=== PATIENT | female | born 1950 ===

== ENCOUNTER 2016-11-19 09:36 | Inpatient (IN) | payer OTHER, MEDICARE ==
[2016-11-19] MEDS ORDERED: Iohexol 240 (50 ml) PO STA (11:08)
[2016-11-19] MEDS ORDERED: Iohexol 240 (50 ml) ONE (11:13)
--- NOTE | 2016-11-19 11:22 | C.PDOC ---
History Of Present Illness 66 yr old female presents to the ER with complaints of constant LLQ pain, radiating to the back for the past 2 days. Patient denies fever, chills, nausea , vomiting, diarrhea, dysuria, weakness or numbness. Also denies prior episode of pain. Time Seen by Provider: 11/19/16 10:22 Chief Complaint (Nursing): Abdominal Pain History Per: Patient History/Exam Limitations: no limitations Onset/Duration Of Symptoms: Days (2) Current Symptoms Are (Timing): Still Present Location Of Pain/Discomfort: LLQ Past Medical History Vital Signs: Last Vital Signs Temp 98.0 F 11/19/16 14:24 Pulse 82 11/19/16 14:24 Resp 18 11/19/16 14:24 BP 121/76 11/19/16 14:24 Pulse Ox 99 11/19/16 15:25 - Medical History PMH: Hypercholesterolemia Surgical History: Cholecystectomy Family History: States: No Known Family Hx - Social History Hx Alcohol Use: No Hx Substance Use: No Review Of Systems Constitutional: Negative for: Fever, Chills Gastrointestinal: Positive for: Abdominal Pain (LLQ). Negative for: Nausea, Vomiting, Diarrhea Genitourinary: Negative for: Dysuria Neurological: Negative for: Weakness, Numbness Physical Exam - Physical Exam Appears: Non-toxic, No Acute Distress Skin: Warm, Dry, No Rash Head: Atraumatic, Normacephalic Oral Mucosa: Moist Chest: Symmetrical, No Tenderness Cardiovascular: Rhythm Regular, No Murmur Respiratory: Normal Breath Sounds, No Rales, No Rhonchi, No Stridor, No Wheezing Gastrointestinal/Abdominal: Soft, Tenderness (LLQ), No Guarding, No Rebound Back: Normal Inspection, No CVA Tenderness Extremity: Normal ROM, No Swelling Neurological/Psych: Oriented x3, Normal Speech, Normal Motor ED Course And Treatment - Laboratory Results Result Diagrams: 11/19/16 11:29 11/19/16 11:29 O2 Sat by Pulse Oximetry: 99 (RA ) Pulse Ox Interpretation: Normal - CT Scan/US CT - Abd & Pelvis Other Rad Studies (CT/US): Read By Radiologist, Radiology Report Reviewed CT/US Interpretation: PROCEDURE: CT Abdomen and Pelvis with and without intravenous contrast. HISTORY: llq pain. COMPARISON: Abdominal ultrasound performed 03/01/12. TECHNIQUE: Axial images of the abdomen were obtained in the pre contrast, portal venous and delayed phases of enhancement. Coronal and sagittal reformats were generated and reviewed. Contrast dose: 100 mL Visipaque. Radiation dose: Total exam DLP = 1125.66 mGy-cm. This CT exam was performed using one or more of the following dose reduction techniques: Automated exposure control, adjustment of the mA and/or kV according to patient size, and/or use of iterative reconstruction technique. FINDINGS: LOWER THORAX : No visible consolidation, pleural effusion, or pneumothorax. 3 mm right middle lobe pulmonary nodule (series 6, image 3). LIVER: Several low-density right hepatic lobe lesions. For example: Largest lesion measures approximately 3.5 x 2.4 cm, 9 HU consistent with a cyst ; additional smaller lesions too small to definitively characterize however statistically likely cysts or hemangiomas. Hypoattenuation of the liver compatible with hepatic steatosis. GALLBLADDER AND BILE DUCTS: Cholecystectomy. PANCREAS: Unremarkable. SPLEEN : Unremarkable. ADRENALS: Unremarkable. KIDNEYS AND URETERS: The kidneys enhance symmetrically. Right renal cortical scarring. No hydronephrosis or obstructing calculus identified. VASCULATURE: No aortic aneurysm. BOWEL: The stomach is nondistended. Lack of oral contrast limits evaluation for bowel pathology. Bowel loops appear within normal limits of caliber without evidence of obstruction. Extensive inflammatory changes and wall thickening involving the rectosigmoid colon consistent with acute diverticulitis. APPENDIX: The appendix appears within normal limits of caliber. No secondary signs of acute appendicitis. PERITONEUM: Small pelvic free fluid. No free air. LYMPH NODES: No bulky adenopathy identified. BLADDER: Urinary bladder wall thickening, asymmetric ; recommend correlation with urinalysis. REPRODUCTIVE: The uterus is present. BONES: No acute osseous abnormality is detected. OTHER FINDINGS: None. IMPRESSION: Extensive inflammatory changes and wall thickening involving the rectosigmoid colon consistent with acute diverticulitis. Urinary bladder wall thickening, asymmetric ; recommend correlation with urinalysis. Appearance suspected secondary to cystitis. Several low-density right hepatic lobe lesions. For example: Largest lesion measures approximately 3.5 x 2.4 cm, 9 HU consistent with a cyst ; additional smaller lesions too small to definitively characterize however statistically likely cysts or hemangiomas. Hepatic steatosis. 3 mm right middle lobe pulmonary nodule. In the absence of risk factors for lung cancer, no specific imaging follow-up is required. If the patient is a smoker or has other risk factors, follow-up CT at 12 months is recommended to document stability. Additional findings as above. Medical Decision Making Medical Decision Making: PLAN: * CT - Abd & Pelvis * CBC * CMP * Urinalysis * Toradol IVP [address] Jenkins and medical observer about admission. pt notified of ct findings and pulm nodule (no f/u needed per ct report- pt never has been a smoker) Disposition Discussed With Dr.: Jacobo Jenkins Jr. 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 - Scribe Statement The provider has reviewed the documentation as recorded by the Scribe Nati Solorzano All medical record entries made by the Scribe were at my direction and personally dictated by me. I have reviewed the chart and agree that the record accurately reflects my personal performance of the history, physical exam, medical decision making, and the department course for this patient. I have also personally directed, reviewed, and agree with the discharge instructions and disposition. Decision To Admit - Pt Status Changed To: Hospital Disposition Of: Observation - . Bed Request Type: Regular Admitting Physician: Jacobo Jenkins Jr. Patient Diagnosis: Diverticulitis
[2016-11-19 11:49] LABS: BASO # 0.1 K/uL (0.0-0.2); BASO % 0.5 % (0.0-2.0); EOS # 0.1 K/uL (0.0-0.7); EOS % 0.8 % (0.0-4.0); GRANULAR CAST 10 /lpf (0-1); HEMATOCRIT 42.2 % (34.0-47.0); LYMPH # 1.9 K/uL (1.0-4.3); MEAN CELL VOLUME 93.2 fL (81.0-99.0); MEAN CORPUSCULAR HEMOGLOBIN 31.5 pg (27.0-31.0); MEAN CORPUSCULAR HGB CONC 33.7 g/dL (33.0-37.0); MEAN PLATELET VOLUME 8.8 fL (7.2-11.7); MONO # 1.1 K/uL (0.0-0.8); MONO % 6.2 % (0.0-10.0); POTASSIUM 3.9 mmol/L (3.6-5.2); RBC URINE 14 /hpf (0-3); RED CELL DISTRIBUTION WIDTH 13.5 % (11.5-14.5); URINE BACTERIA RARE (<OCC); URINE BILIRUBIN NEGATIVE (NEGATIVE); URINE BLOOD 2+ (NEGATIVE); URINE COLOR Amber (YELLOW); URINE GLUCOSE (UA) NORMAL (Normal); URINE HYALINE CAST 0-2 /lpf (0-2); URINE KETONE NEGATIVE (NEGATIVE); URINE LEUKOCYTE ESTERASE TRACE Leu/uL (Negative); URINE PROTEIN 2+ mg/dL (NEGATIVE); URINE UROBILINOGEN NORMAL mg/dL (0.2-1.0); WBC URINE 5 /hpf (0-5)
[2016-11-19 11:51] LABS: ALB/GLOB RATIO 0.8 (1.0-2.1); BILIRUBIN,TOTAL 0.7 mg/dL (0.2-1.3); TOTAL PROTEIN 7.1 g/dL (6.3-8.3)
[2016-11-19 11:52] LABS: CALCIUM 8.9 mg/dl (8.6-10.4)
[2016-11-19] MEDS ORDERED: Iodixanol 320 MG/ML 100 ML BOTTLE IV ONE (13:22)
[2016-11-19] MEDS ORDERED: cefTRIAXone IV 1 gm in Dextros 50 ML IVPB ONE (13:36)
--- NOTE | 2016-11-19 14:38 | CT ---
PROCEDURE: CT Abdomen and Pelvis with and without intravenous contrast HISTORY: llq pain COMPARISON: Abdominal ultrasound performed 03/01/12 TECHNIQUE: Axial images of the abdomen were obtained in the pre contrast, portal venous and delayed phases of enhancement. Coronal and sagittal reformats were generated and reviewed. Contrast dose: 100 mL Visipaque Radiation dose: Total exam DLP = 1125.66 mGy-cm. This CT exam was performed using one or more of the following dose reduction techniques: Automated exposure control, adjustment of the mA and/or kV according to patient size, and/or use of iterative reconstruction technique. FINDINGS: LOWER THORAX: No visible consolidation, pleural effusion, or pneumothorax. 3 mm right middle lobe pulmonary nodule (series 6, image 3). LIVER: Several low-density right hepatic lobe lesions. For example: Largest lesion measures approximately 3.5 x 2.4 cm, 9 HU consistent with a cyst ; additional smaller lesions too small to definitively characterize however statistically likely cysts or hemangiomas. Hypoattenuation of the liver compatible with hepatic steatosis. GALLBLADDER AND BILE DUCTS: Cholecystectomy. PANCREAS: Unremarkable. SPLEEN: Unremarkable. ADRENALS: Unremarkable. KIDNEYS AND URETERS: The kidneys enhance symmetrically. Right renal cortical scarring. No hydronephrosis or obstructing calculus identified. VASCULATURE: No aortic aneurysm. BOWEL: The stomach is nondistended. Lack of oral contrast limits evaluation for bowel pathology. Bowel loops appear within normal limits of caliber without evidence of obstruction. Extensive inflammatory changes and wall thickening involving the rectosigmoid colon consistent with acute diverticulitis. APPENDIX: The appendix appears within normal limits of caliber. No secondary signs of acute appendicitis. PERITONEUM: Small pelvic free fluid. No free air. LYMPH NODES: No bulky adenopathy identified. BLADDER: Urinary bladder wall thickening, asymmetric ; recommend correlation with urinalysis. REPRODUCTIVE: The uterus is present. BONES: No acute osseous abnormality is detected. OTHER FINDINGS: None. IMPRESSION: Extensive inflammatory changes and wall thickening involving the rectosigmoid colon consistent with acute diverticulitis. Urinary bladder wall thickening, asymmetric ; recommend correlation with urinalysis. Appearance suspected secondary to cystitis. Several low-density right hepatic lobe lesions. For example: Largest lesion measures approximately 3.5 x 2.4 cm, 9 HU consistent with a cyst ; additional smaller lesions too small to definitively characterize however statistically likely cysts or hemangiomas. Hepatic steatosis. 3 mm right middle lobe pulmonary nodule. In the absence of risk factors for lung cancer, no specific imaging follow-up is required. If the patient is a smoker or has other risk factors, follow-up CT at 12 months is recommended to document stability. Additional findings as above.
[2016-11-19] MEDS ORDERED: Sodium Chloride 0.9% 1,000 ML IV ONE (15:08)
[2016-11-19] MEDS ORDERED: Sodium Chloride 0.9% 1,000 ML ONE (15:20)
--- NOTE | 2016-11-19 18:44 | CP.PCM.HP ---
History of Present Illness - History of Present Illness History of Present Illness: PGY-[address] Jenkins HPI: 66 yo F with a PMHx significant for HLD who presents with complaints of abdominal pain that began yesterday morning. Patient states that shortly after waking up in the morning, while still lying in bed, she began to feel a "strong , bothersome" pain to the left-side. The pain originates in the LLQ and radiates to the left flank/back. She reports taking Tylenol and Motrin at home with some temporary relief. No noted aggravating factors. Denies any similar prior episodes in the past. Patient states that a few days before the onset of the pain, she began having a subjective fever and chills in which she also took Tylenol for. She is otherwise in NAD. Denies signs of chest pain, palpitations, n/v/d, constipation, changes in BM or urinary habits or changes in appetite. Of note, she has had recent sick contacts, as her 3 granddaughters all have had recent "colds". Denies any recent travels or eating any unusual foods. No other complaints at this time PMH: HLD PSH: Nikita Manriquez FH: None SH: -smoking, -EtOH, - Illicit drugs Meds: Atorvastatin 20mg PO QD Allergies: NKA Present on Admission - Present on Admission Any Indicators Present on Admission: No History of DVT/PE: No History of Uncontrolled Diabetes: No Urinary Catheter: No Decubitus Ulcer Present: No Review of Systems - Constitutional Constitutional: As Per HPI - EENT Eyes: As Per HPI Ears: As Per HPI Nose/Mouth/Throat: As Per HPI - Breasts Breasts: As Per HPI - Cardiovascular Cardiovascular: As Per HPI - Respiratory Respiratory: As Per HPI - Gastrointestinal Gastrointestinal: As Per HPI - Genitourinary Genitourinary: As Per HPI - Reproductive: Female Reproductive:Female: As Per HPI - Menstruation Menstruation: As Per HPI - Musculoskeletal Musculoskeletal: As Per HPI - Integumentary Integumentary: As Per HPI - Neurological Neurological: As Per HPI - Psychiatric Psychiatric: As Per HPI - Endocrine Endocrine: As Per HPI - Hematologic/Lymphatic Hematologic: As Per HPI Past Patient History - Tetanus Immunizations Tetanus Immunization: Unknown - Past Medical History & Family History Past Medical History?: No - Past Social History Smoking Status: Never Smoked Chewing Tobacco Use: No Cigar Use: No Alcohol: None Drugs: Denies Home Situation {Lives}: With Family - CARDIAC Hx Hypercholesterolemia: Yes - PSYCHIATRIC Hx Substance Use: No - SURGICAL HISTORY Hx Cholecystectomy: Yes Meds Allergies/Adverse Reactions: Allergies Allergy/AdvReac Type Severity Reaction Status Date / Time No Known Allergies Allergy Verified 11/19/16 09:44 Physical Exam - Constitutional Appears: Well, Non-toxic - Head Exam Head Exam: ATRAUMATIC, NORMAL INSPECTION, NORMOCEPHALIC - Eye Exam Eye Exam: EOMI - ENT Exam ENT Exam: Mucous Membranes Moist - Neck Exam Neck exam: Positive for: Full Rom - Respiratory Exam Respiratory Exam: Clear to Auscultation Bilateral, NORMAL BREATHING PATTERN. absent: Rhonchi, Wheezes, Stridor - Cardiovascular Exam Cardiovascular Exam: REGULAR RHYTHM, RRR. absent: Bradycardia, Tachycardia, Clicks, JVD, Systolic Murmur - GI/Abdominal Exam GI & Abdominal Exam: Normal Bowel Sounds, Soft, Tenderness (moderate trenderness to deep palpation in the LLQ). absent: Distended, Firm, Guarding - Neurological Exam Neurological exam: Alert, Oriented x3 - Psychiatric Exam Psychiatric exam: Normal Affect, Normal Mood - Skin Skin Exam: Dry, Intact, Warm Results - Vital Signs Recent Vital Signs: Last Vital Signs Temp 98.6 F 11/19/16 18:35 Pulse 83 11/19/16 18:35 Resp 20 11/19/16 18:35 BP 119/70 11/19/16 18:35 Pulse Ox 97 11/19/16 18:35 - Labs Result Diagrams: 11/19/16 11:29 11/19/16 11:29 Assessment & Plan - Assessment and Plan (Free Text) Assessment: Diverticulitis: Cipro 500mg PO Q12 Flagyl 500mg PO Q8 Solumedrol 40mg IV Q12 x3d NPO HLD: Crestor 20mg PO QD PPX: Ambulate/OOB SCD Pepcid 20mg PO QD NS@100 - Date & Time Date: 11/19/16 Time: 18:53 Decision To Admit - . Bed Request Type: Regular Admitting Physician: Jacobo Jenkins Jr.
[2016-11-19] MEDS: Sodium Chloride 0.9% 1,000 ML IV SCH (19:05)
[2016-11-19] MEDS: MethylPREDNISolone 40 mg Vial IV SCH (22:27)
[2016-11-20] MEDS: Sodium Chloride 0.9% 1,000 ML IV SCH ×2 (04:59→14:36)
[2016-11-20 07:36] LABS: BASO % 0.3 % (0.0-2.0); HEMATOCRIT 36.6 % (34.0-47.0); LYMPH # 0.8 K/uL (1.0-4.3); LYMPH % 4.9 % (20.0-40.0); MEAN CELL VOLUME 92.5 fL (81.0-99.0); MEAN CORPUSCULAR HEMOGLOBIN 31.3 pg (27.0-31.0); MEAN CORPUSCULAR HGB CONC 33.8 g/dL (33.0-37.0); MEAN PLATELET VOLUME 7.7 fL (7.2-11.7); MONO # 0.4 K/uL (0.0-0.8); MONO % 2.3 % (0.0-10.0); PLATELET COUNT 271 K/uL (130-400); RED CELL DISTRIBUTION WIDTH 13.8 % (11.5-14.5); WHITE BLOOD COUNT 15.4 K/uL (4.8-10.8)
[2016-11-20 07:53] LABS: INR 1.2
[2016-11-20 08:28] LABS: CHLORIDE 113 mmol/L (98-107); POTASSIUM 3.7 mmol/L (3.6-5.2); SODIUM 146 mmol/L (132-148)
[2016-11-20 08:30] LABS: ALB/GLOB RATIO 0.8 (1.0-2.1); ALKALINE PHOSPHATASE 303 U/L (38-126); AST/SGOT 36 U/L (14-36); BILIRUBIN,TOTAL 0.6 mg/dL (0.2-1.3); BLOOD UREA NITROGEN 13 mg/dL (7-17); CARBON DIOXIDE 18 mmol/L (22-30); GFR AFRICAN-AMERICAN > 60; TOTAL PROTEIN 6.1 g/dL (6.3-8.3)
[2016-11-20 08:31] LABS: ALT/SGPT 57 U/L (9-52); CALCIUM 8.2 mg/dl (8.6-10.4); GLUCOSE,RANDOM 151 mg/dL (65-105); MAGNESIUM 2.1 mg/dL (1.6-2.3); PHOSPHOROUS 3.2 mg/dL (2.5-4.5)
[2016-11-20 09:05] LABS: NEUTROPHIL 88 % (50-75); TOTAL CELLS COUNTED 100
[2016-11-20] MEDS: MethylPREDNISolone 40 mg Vial IV SCH ×2 (09:55→22:23)
[2016-11-20] MEDS ORDERED: Promethazine 12.5 mg/10 ml Syrup PO PRN (10:22)
--- NOTE | 2016-11-20 12:28 | CP.PCM.PN ---
<Laurie Zhang - Last Filed: 11/20/16 12:19> Subjective - Date & Time of Evaluation Date of Evaluation: 11/20/16 Time of Evaluation: 07:00 - Subjective Subjective: Medicine Note for Dr. Jenkins Patient was seen and examined at bedside. She reports her pain has resolved and is hungry. She had a normal BM this morning, nonbloody. Denied fever, chills, headache, chest pain, SOB, abdominal pain, n/v/d/c, or urinary symptoms. Objective - Vital Signs/Intake and Output Vital Signs (last 24 hours): Temp Pulse Resp BP Pulse Ox 97.7 F 85 20 97/53 L 95 11/20/16 07:00 11/20/16 07:00 11/20/16 07:00 11/20/16 07:00 11/20/16 07:00 Intake and Output: 11/20/16 11/20/16 06:59 18:59 Intake Total 300 860 Balance 300 860 - Medications Medications: Current Medications Ciprofloxacin (Cipro) 500 mg PO BID [facility] Last Admin: 11/20/16 09:55 Dose: 500 mg Famotidine (Pepcid) 20 mg PO BID [facility] Last Admin: 11/20/16 09:55 Dose: 20 mg Sodium Chloride (Sodium Chloride 0.9%) 1,000 mls @ 100 mls/hr IV .Q10H [facility] Last Admin: 11/20/16 04:59 Dose: 100 mls/hr Ibuprofen (Motrin Tab) 400 mg PO Q6 PRN PRN Reason: Pain, Mild (1-3) Last Admin: 11/19/16 19:05 Dose: 400 mg Methylprednisolone (Solu-Medrol) 40 mg IV Q12 [facility] Stop: 11/22/16 22:01 Last Admin: 11/20/16 09:55 Dose: 40 mg Metronidazole (Flagyl) 500 mg PO Q8 [facility] Last Admin: 11/20/16 05:14 Dose: 500 mg Ondansetron HCl (Zofran Inj) 4 mg IVP Q6 PRN PRN Reason: Nausea/Vomiting Pneumococcal Polyvalent Vaccine (Pneumovax 23 Vaccine) 0.5 ml IM .ONCE ONE Stop: 11/21/16 10:01 Promethazine HCl (Phenergan Syrup) 12.5 mg PO Q6 PRN PRN Reason: Cough Rosuvastatin Calcium (Crestor) 20 mg PO HS [facility] Last Admin: 11/19/16 22:22 Dose: 20 mg - Labs Labs: 11/20/16 07:10 11/20/16 07:10 PT 12.9 SECONDS (9.7-12.2) H 11/20/16 07:10 INR 1.2 11/20/16 07:10 APTT 31 SECONDS (21-34) 11/20/16 07:10 - Constitutional Appears: No Acute Distress - Head Exam Head Exam: NORMAL INSPECTION, NORMOCEPHALIC - Eye Exam Eye Exam: EOMI, Normal appearance, PERRL Pupil Exam: NORMAL ACCOMODATION - ENT Exam ENT Exam: Mucous Membranes Moist, Normal Exam - Respiratory Exam Respiratory Exam: Clear to Ausculation Bilateral, NORMAL BREATHING PATTERN. absent: Wheezes - Cardiovascular Exam Cardiovascular Exam: REGULAR RHYTHM, RRR, +S1, +S2 - GI/Abdominal Exam GI & Abdominal Exam: Soft, Normal Bowel Sounds. absent: Distended, Tenderness - Extremities Exam Extremities Exam: Normal Inspection. absent: Pedal Edema, Tenderness - Neurological Exam Neurological Exam: Alert, Awake, Oriented x3 - Skin Skin Exam: Dry, Intact, Normal Color, Warm Assessment and Plan - Assessment and Plan (Free Text) Plan: Bacterimia * Blood cultures, positive of gram negative x2 * Continue current antibiotic regimen * Will repeat blood cultures * F/U ECHO Diverticulitis * Afebrile, downtrending leukocytosis * NS@100 * Started on Cipro 500mg PO Q12, Flagyl 500mg PO Q8 * Solumedrol 40mg IV Q12 day 2/3 * Diet advanced to full liquid diet, will advance further as tolerated UTI * UA: trace LE, +2 protein * F/U repeat UA and Urine Culture Transaminitis * Downtrending, continue to monitor HLD * Crestor 20mg PO QD * F/U lipid panel Prophylactic Measures * GI PPX: Pepcid 20mg PO QD * DVT PPX: Ambulate/OOB, SCD, Heparin 5000SC Q12H DW Vicente Hernandez DO, PGY-1 <Jacobo Jenkins Jr. - Last Filed: 11/25/16 16:35> Objective - Vital Signs/Intake and Output Vital Signs (last 24 hours): Temp Pulse Resp BP Pulse Ox 98.7 F 55 L 18 133/66 95 11/22/16 16:40 11/22/16 16:40 11/22/16 16:40 11/22/16 16:40 11/22/16 16:40 - Labs Labs: 11/22/16 07:12 11/22/16 07:12 PT 12.9 SECONDS (9.7-12.2) H 11/20/16 07:10 INR 1.2 11/20/16 07:10 APTT 31 SECONDS (21-34) 11/20/16 07:10 Attending/Attestation - Attestation I have personally seen and examined this patient.: Yes I have fully participated in the care of the patient.: Yes I have reviewed all pertinent clinical information, including history, physical exam and plan: Yes Notes (Text): 11/25/16 16:35 Agree with resident note and findings
[2016-11-20 13:01] LABS: URINE BILIRUBIN NEGATIVE (NEGATIVE); URINE BLOOD 1+ (NEGATIVE); URINE COLOR Yellow (YELLOW); URINE GLUCOSE (UA) NORMAL (Normal); URINE KETONE 1+ mg/dL (NEGATIVE); URINE LEUKOCYTE ESTERASE TRACE Leu/uL (Negative); URINE PROTEIN 1+ mg/dL (NEGATIVE); URINE UROBILINOGEN NORMAL mg/dL (0.2-1.0)
[2016-11-21] MEDS: Sodium Chloride 0.9% 1,000 ML IV SCH ×3 (00:06→22:09)
--- NOTE | 2016-11-21 06:16 | CP.PCM.PN ---
<Laurie Zhang - Last Filed: 11/21/16 12:54> Subjective - Date & Time of Evaluation Date of Evaluation: 11/21/16 Time of Evaluation: 07:00 - Subjective Subjective: Medicine Note for Dr. Jenkins Patient was seen and examined at bedside. No acute complaints diet advanced to SOFT today. Denied fever, chills, headache, chest pain, SOB, abdominal pain, n/v /d/c, or urinary symptoms. Objective - Vital Signs/Intake and Output Vital Signs (last 24 hours): Temp Pulse Resp BP Pulse Ox 98.3 F 77 20 116/63 95 11/21/16 00:40 11/21/16 00:40 11/21/16 00:40 11/21/16 00:40 11/21/16 00:40 Intake and Output: 11/20/16 11/21/16 18:59 06:59 Intake Total 1200 Balance 1200 - Medications Medications: Current Medications Ciprofloxacin (Cipro) 500 mg PO BID [facility] Last Admin: 11/20/16 17:34 Dose: 500 mg Famotidine (Pepcid) 20 mg PO BID [facility] Last Admin: 11/20/16 17:34 Dose: 20 mg Heparin Sodium (Porcine) (Heparin) 5,000 units SC Q12 [facility] Last Admin: 11/20/16 22:23 Dose: 5,000 units Sodium Chloride (Sodium Chloride 0.9%) 1,000 mls @ 100 mls/hr IV .Q10H [facility] Last Admin: 11/21/16 00:06 Dose: 100 mls/hr Ibuprofen (Motrin Tab) 400 mg PO Q6 PRN PRN Reason: Pain, Mild (1-3) Last Admin: 11/19/16 19:05 Dose: 400 mg Methylprednisolone (Solu-Medrol) 40 mg IV Q12 [facility] Stop: 11/22/16 22:01 Last Admin: 11/20/16 22:23 Dose: 40 mg Metronidazole (Flagyl) 500 mg PO Q8 [facility] Last Admin: 11/21/16 05:58 Dose: 500 mg Ondansetron HCl (Zofran Inj) 4 mg IVP Q6 PRN PRN Reason: Nausea/Vomiting Pneumococcal Polyvalent Vaccine (Pneumovax 23 Vaccine) 0.5 ml IM .ONCE ONE Stop: 11/21/16 10:01 Promethazine HCl (Phenergan Syrup) 12.5 mg PO Q6 PRN PRN Reason: Cough Rosuvastatin Calcium (Crestor) 20 mg PO HS [facility] Last Admin: 11/20/16 22:22 Dose: 20 mg - Labs Labs: PT 12.9 SECONDS (9.7-12.2) H 11/20/16 07:10 INR 1.2 11/20/16 07:10 APTT 31 SECONDS (21-34) 11/20/16 07:10 - Constitutional Appears: No Acute Distress - Head Exam Head Exam: NORMAL INSPECTION, NORMOCEPHALIC - Eye Exam Eye Exam: EOMI, Normal appearance, PERRL Pupil Exam: NORMAL ACCOMODATION - ENT Exam ENT Exam: Mucous Membranes Moist, Normal Exam - Neck Exam Neck Exam: Normal Inspection - Respiratory Exam Respiratory Exam: Clear to Ausculation Bilateral, NORMAL BREATHING PATTERN. absent: Wheezes - Cardiovascular Exam Cardiovascular Exam: REGULAR RHYTHM, RRR, +S1, +S2 - GI/Abdominal Exam GI & Abdominal Exam: Soft, Normal Bowel Sounds. absent: Distended, Tenderness - Extremities Exam Extremities Exam: Normal Inspection. absent: Pedal Edema, Tenderness - Neurological Exam Neurological Exam: Alert, Awake, Oriented x3 - Psychiatric Exam Psychiatric exam: Normal Affect, Normal Mood - Skin Skin Exam: Dry, Intact, Normal Color, Warm Assessment and Plan - Assessment and Plan (Free Text) Plan: Bacterimia * Blood cultures, positive of gram negative x2 * Continue current antibiotic regimen * F/U repeat blood cultures * F/U ECHO Diverticulitis * Afebrile, downtrending leukocytosis * NS@100 * Started on Cipro 500mg PO Q12, Flagyl 500mg PO Q8 * Solumedrol 40mg IV Q12 day 2/3 * Diet advanced to full liquid diet, will advance further as tolerated UTI * UA: trace LE, +2 protein * Urine Culture - no growth Transaminitis * Downtrending, continue to monitor HLD * Crestor 20mg PO QD * lipid panel - WNL Incidental finding on CT Scan - Pulmonary Nodule * Abdomen and Pelvis CT- 3 mm right middle lobe pulmonary nodule. In the absence of risk factors for lung cancer, no specific imaging follow-up is required. If the patient is a smoker or has other risk factors, follow-up CT at 12 months is recommended to document stability. Prophylactic Measures * GI PPX: Pepcid 20mg PO QD * DVT PPX: Ambulate/OOB, SCD, Heparin 5000SC Q12H DW Vicente Hernandez DO, PGY-1 <Jacobo Jenkins Jr. - Last Filed: 11/25/16 16:37> Objective - Vital Signs/Intake and Output Vital Signs (last 24 hours): Temp Pulse Resp BP Pulse Ox 98.7 F 55 L 18 133/66 95 11/22/16 16:40 11/22/16 16:40 11/22/16 16:40 11/22/16 16:40 11/22/16 16:40 - Labs Labs: 11/22/16 07:12 11/22/16 07:12 PT 12.9 SECONDS (9.7-12.2) H 11/20/16 07:10 INR 1.2 11/20/16 07:10 APTT 31 SECONDS (21-34) 11/20/16 07:10 Attending/Attestation - Attestation I have personally seen and examined this patient.: Yes I have fully participated in the care of the patient.: Yes I have reviewed all pertinent clinical information, including history, physical exam and plan: Yes Notes (Text): 11/25/16 16:37 Agree with resident note and findings
[2016-11-21 06:59] LABS: ALB/GLOB RATIO 0.8 (1.0-2.1); ALKALINE PHOSPHATASE 246 U/L (38-126); ALT/SGPT 49 U/L (9-52); AST/SGOT 31 U/L (14-36); BILIRUBIN,TOTAL 0.3 mg/dL (0.2-1.3); BLOOD UREA NITROGEN 14 mg/dL (7-17); CALCIUM 7.6 mg/dl (8.6-10.4); CARBON DIOXIDE 18 mmol/L (22-30); CHLORIDE 113 mmol/L (98-107); CHOLESTEROL 119 mg/dL (0-199); GFR AFRICAN-AMERICAN > 60; GLUCOSE,RANDOM 170 mg/dL (65-105); MAGNESIUM 2.3 mg/dL (1.6-2.3); PHOSPHOROUS 2.6 mg/dL (2.5-4.5); POTASSIUM 3.4 mmol/L (3.6-5.2); SODIUM 143 mmol/L (132-148); TOTAL PROTEIN 5.4 g/dL (6.3-8.3)
[2016-11-21 07:29] LABS: BASO % 0.1 % (0.0-2.0); HEMATOCRIT 33.9 % (34.0-47.0); LYMPH # 1.6 K/uL (1.0-4.3); LYMPH % 7.2 % (20.0-40.0); MEAN CELL VOLUME 93.1 fL (81.0-99.0); MEAN CORPUSCULAR HEMOGLOBIN 31.1 pg (27.0-31.0); MEAN CORPUSCULAR HGB CONC 33.4 g/dL (33.0-37.0); MEAN PLATELET VOLUME 8.2 fL (7.2-11.7); MONO # 0.4 K/uL (0.0-0.8); MONO % 1.8 % (0.0-10.0); PLATELET COUNT 299 K/uL (130-400); RED CELL DISTRIBUTION WIDTH 13.9 % (11.5-14.5); WHITE BLOOD COUNT 22.1 K/uL (4.8-10.8)
[2016-11-21 08:54] LABS: NEUTROPHIL 91 % (50-75); TOTAL CELLS COUNTED 100
[2016-11-21] MEDS ORDERED: Acetylcysteine 20% Inhal Soln (4ml) INH SCH (09:00)
[2016-11-21] MEDS: metroNIDAZOLE IV 500 mg/100 ml 500 MG/100 ML BAG IVPB SCH ×2 (09:45→17:52)
[2016-11-21] MEDS: MethylPREDNISolone 40 mg Vial IV SCH ×2 (09:52→22:02)
[2016-11-21] MEDS ORDERED: Potassium Chloride 20 mEq ER Tab PO ONE (10:00)
[2016-11-21] MEDS ORDERED: Pneumococcal 23-Valent Vaccine IM ONE (10:00)
[2016-11-21] MEDS: Promethazine 12.5 mg/10 ml Syrup PO SCH ×3 (10:14→17:59)
[2016-11-21] MEDS: Ciprofloxacin 400mg/200ml D5W 400 MG/200 ML BAG IVPB SCH ×2 (11:04→22:01)
[2016-11-22] MEDS: Promethazine 12.5 mg/10 ml Syrup PO SCH ×4 (00:15→17:45)
[2016-11-22] MEDS: metroNIDAZOLE IV 500 mg/100 ml 500 MG/100 ML BAG IVPB SCH ×3 (00:16→16:14)
[2016-11-22] MEDS: Sodium Chloride 0.9% 1,000 ML IV SCH (05:52)
[2016-11-22 07:34] LABS: BASO % 0.1 % (0.0-2.0); HEMATOCRIT 35.1 % (34.0-47.0); LYMPH # 2.2 K/uL (1.0-4.3); LYMPH % 10.5 % (20.0-40.0); MEAN CELL VOLUME 93.1 fL (81.0-99.0); MEAN CORPUSCULAR HEMOGLOBIN 30.6 pg (27.0-31.0); MEAN CORPUSCULAR HGB CONC 32.9 g/dL (33.0-37.0); MEAN PLATELET VOLUME 7.7 fL (7.2-11.7); MONO # 0.5 K/uL (0.0-0.8); MONO % 2.6 % (0.0-10.0); RED CELL DISTRIBUTION WIDTH 14.1 % (11.5-14.5); WHITE BLOOD COUNT 20.6 K/uL (4.8-10.8)
[2016-11-22 07:43] LABS: ALB/GLOB RATIO 0.8 (1.0-2.1); ALKALINE PHOSPHATASE 224 U/L (38-126); ALT/SGPT 44 U/L (9-52); AST/SGOT 24 U/L (14-36); BILIRUBIN,TOTAL 0.5 mg/dL (0.2-1.3); BLOOD UREA NITROGEN 15 mg/dL (7-17); CALCIUM 7.6 mg/dl (8.6-10.4); CARBON DIOXIDE 18 mmol/L (22-30); CHLORIDE 116 mmol/L (98-107); GFR AFRICAN-AMERICAN > 60; GLUCOSE,RANDOM 169 mg/dL (65-105); MAGNESIUM 2.4 mg/dL (1.6-2.3); PHOSPHOROUS 2.5 mg/dL (2.5-4.5); POTASSIUM 4.1 mmol/L (3.6-5.2); SODIUM 146 mmol/L (132-148); TOTAL PROTEIN 5.7 g/dL (6.3-8.3)
--- NOTE | 2016-11-22 08:01 | CARD ---
APPROVED REPORT EXAM: Two-dimensional and M-mode echocardiogram with Doppler and color Doppler. Other Information Quality : GoodRhythm : NSR M-Mode DIMENSIONS RVDd1.56 (2.1-3.2cm)Left Atrium (MM)3.25 (2.5-4.0cm) IVSd1.01 (0.7-1.1cm)Aortic Root2.67 (2.2-3.7cm) LVDd4.36 (4.0-5.6cm)Aortic Cusp Exc.1.76 (1.5-2.0cm) PWd1.04 (0.7-1.1cm)FS (%) 43 % LVDs2.47 (2.0-3.8cm)LVEF (%)75 (>50%) Aortic Valve AoV Peak Lkssveam534.0cm/Philipp Peak GR.13mmHg Mitral Valve MV E Cgxsgfbc04.0cm/sMV A Ewrqwuzh038.0cm/sE/A ratio0.7 TDI E/Lateral E'0.0E/Medial E'0.0 Tricuspid Valve TR Peak Nhjfzuej137bx/sTR Peak Gr.72etAqPEDL79fqTd LEFT VENTRICLE The left ventricle is normal size. There is normal left ventricular wall thickness. The left ventricular function is normal. The left ventricular ejection fraction is within the normal range. The Ejection Fraction is >55%. No regional wall motion abnormalities noted. The left ventricular diastolic function is normal. No left ventricle thrombus noted on this study. There is no ventricular septal defect visualized. There is no left ventricular aneurysm. There is no mass noted in the left ventricle. RIGHT VENTRICLE The right ventricle is normal size. There is normal right ventricular wall thickness. The right ventricular systolic function is normal. ATRIA The left atrium size is normal. The right atrium size is normal. The interatrial septum is intact with no evidence for an atrial septal defect. AORTIC VALVE The aortic valve is normal in structure and function. No aortic regurgitation is present. There is no aortic valvular stenosis. There is no aortic valvular vegetation. MITRAL VALVE The mitral valve is normal in structure and function. There is no evidence of mitral valve prolapse. There is no mitral valve stenosis. There is no mitral valve regurgitation noted. TRICUSPID VALVE The tricuspid valve is normal in structure and function. There is trace tricuspid regurgitation. Right ventricular systolic pressure is estimated at 30-40 mmHg. There is no tricuspid valve prolapse or vegetation. There is no tricuspid valve stenosis. PULMONIC VALVE The pulmonary valve is normal in structure and function. There is no pulmonic valvular regurgitation. There is no pulmonic valvular stenosis. GREAT VESSELS The aortic root is normal in size. The ascending aorta is normal in size. The pulmonary artery is normal. The IVC is normal in size and collapses >50% with inspiration. PERICARDIAL EFFUSION The pericardium appears normal. There is no pleural effusion. <Conclusion> The left ventricle is normal size. The left ventricular ejection fraction is within the normal range. The Ejection Fraction is >55%. There is trace tricuspid regurgitation. Right ventricular systolic pressure is estimated at 30-40 mmHg.
[2016-11-22 08:13] VITALS: PULSE 55
[2016-11-22] MEDS: MethylPREDNISolone 40 mg Vial IV SCH (09:56)
[2016-11-22] MEDS: Ciprofloxacin 400mg/200ml D5W 400 MG/200 ML BAG IVPB SCH (10:50)
--- NOTE | 2016-11-22 11:14 | CP.PCM.PN ---
<Laurie Zhang - Last Filed: 11/22/16 11:10> Subjective - Date & Time of Evaluation Date of Evaluation: 11/22/16 Time of Evaluation: 07:00 - Subjective Subjective: Medicine Note for Dr. Jenkins Patient was seen and examined at bedside. No acute complaints. Diet advanced to heart healthy today for lunch. Denied fever, chills, headache, chest pain, SOB, abdominal pain, n/v/d/c, or urinary symptoms. Objective - Vital Signs/Intake and Output Vital Signs (last 24 hours): Temp Pulse Resp BP Pulse Ox 98.2 F 55 L 20 117/68 95 11/22/16 08:13 11/22/16 08:13 11/22/16 08:13 11/22/16 08:13 11/22/16 08:13 Intake and Output: 11/22/16 11/22/16 06:59 18:59 Intake Total 2240 Balance 2240 - Medications Medications: Current Medications Acetaminophen (Tylenol 325mg Tab) 650 mg PO Q6 PRN PRN Reason: Headache Famotidine (Pepcid) 20 mg PO BID [facility] Last Admin: 11/22/16 09:56 Dose: 20 mg Heparin Sodium (Porcine) (Heparin) 5,000 units SC Q12 [facility] Last Admin: 11/22/16 09:56 Dose: 5,000 units Sodium Chloride (Sodium Chloride 0.9%) 1,000 mls @ 100 mls/hr IV .Q10H [facility] Last Admin: 11/22/16 05:52 Dose: Not Given Ciprofloxacin (Cipro 400mg/200ml Dsw) 400 mg in 200 mls @ 133 mls/hr IVPB Q12H [facility] Last Admin: 11/22/16 10:50 Dose: 133 mls/hr Metronidazole (Flagyl) 500 mg in 100 mls @ 100 mls/hr IVPB Q8H [facility] Last Admin: 11/22/16 09:55 Dose: 100 mls/hr Ibuprofen (Motrin Tab) 400 mg PO Q6 PRN PRN Reason: Pain, Mild (1-3) Last Admin: 11/21/16 12:28 Dose: 400 mg Methylprednisolone (Solu-Medrol) 40 mg IV Q12 [facility] Stop: 11/22/16 22:01 Last Admin: 11/22/16 09:56 Dose: 40 mg Ondansetron HCl (Zofran Inj) 4 mg IVP Q6 PRN PRN Reason: Nausea/Vomiting Promethazine HCl (Phenergan Syrup) 12.5 mg PO Q6 [facility] Last Admin: 11/22/16 05:49 Dose: 12.5 mg Rosuvastatin Calcium (Crestor) 20 mg PO HS [facility] Last Admin: 11/21/16 22:01 Dose: 20 mg - Labs Labs: 11/22/16 07:12 11/22/16 07:12 PT 12.9 SECONDS (9.7-12.2) H 11/20/16 07:10 INR 1.2 11/20/16 07:10 APTT 31 SECONDS (21-34) 11/20/16 07:10 - Constitutional Appears: No Acute Distress - Head Exam Head Exam: NORMAL INSPECTION, NORMOCEPHALIC - Eye Exam Eye Exam: EOMI, Normal appearance, PERRL Pupil Exam: NORMAL ACCOMODATION - ENT Exam ENT Exam: Mucous Membranes Moist, Normal Exam - Respiratory Exam Respiratory Exam: Clear to Ausculation Bilateral, NORMAL BREATHING PATTERN - Cardiovascular Exam Cardiovascular Exam: REGULAR RHYTHM, RRR - GI/Abdominal Exam GI & Abdominal Exam: Soft, Normal Bowel Sounds. absent: Distended, Tenderness - Extremities Exam Extremities Exam: Normal Inspection. absent: Pedal Edema, Tenderness - Neurological Exam Neurological Exam: Alert, Awake, Oriented x3 - Skin Skin Exam: Dry, Intact, Normal Color, Warm Assessment and Plan - Assessment and Plan (Free Text) Plan: Bacterimia * Blood cultures, positive of gram negative x2 * Continue current antibiotic regimen * ECHO EF 75%, trace TR * Repeat blood cultures Diverticulitis * Afebrile, downtrending leukocytosis * Started on Cipro 500mg IV Q12, Flagyl 500mg IV Q8 * Solumedrol 40mg IV Q12 day 3/3 * Diet advanced to heart healthy diet UTI * UA: trace LE, +2 protein * Urine Culture - no growth Transaminitis * Downtrending, continue to monitor HLD * Crestor 20mg PO QD * Lipid panel - WNL Incidental finding on CT Scan - Pulmonary Nodule * Abdomen and Pelvis CT- 3 mm right middle lobe pulmonary nodule. In the absence of risk factors for lung cancer, no specific imaging follow-up is required. If the patient is a smoker or has other risk factors, follow-up CT at 12 months is recommended to document stability. Prophylactic Measures * GI PPX: Pepcid 20mg PO QD * DVT PPX: Ambulate/OOB, SCD, Heparin 5000SC Q12H DW Vicente Hernandez DO, PGY-1 <Jacobo Jenkins Jr. - Last Filed: 11/25/16 16:38> Objective - Vital Signs/Intake and Output Vital Signs (last 24 hours): Temp Pulse Resp BP Pulse Ox 98.7 F 55 L 18 133/66 95 11/22/16 16:40 11/22/16 16:40 11/22/16 16:40 11/22/16 16:40 11/22/16 16:40 - Labs Labs: 11/22/16 07:12 11/22/16 07:12 PT 12.9 SECONDS (9.7-12.2) H 11/20/16 07:10 INR 1.2 11/20/16 07:10 APTT 31 SECONDS (21-34) 11/20/16 07:10 Attending/Attestation - Attestation I have personally seen and examined this patient.: Yes I have fully participated in the care of the patient.: Yes I have reviewed all pertinent clinical information, including history, physical exam and plan: Yes Notes (Text): 11/25/16 16:38 Agree with resident note and findings
[2016-11-22 16:41] VITALS: BP 133/66; RESP 18; TEMP 98.7
--- NOTE | 2016-11-22 17:12 | CP.PCM.DIS ---
Provider - Provider Date of Admission: 11/20/16 15:23 Attending physician: Jacobo Jenkins Jr, MD Time Spent in preparation of Discharge (in minutes): 55 Hospital Course - Lab Results Lab Results: Micro Results 11/21/16 14:00 Blood Blood Culture - Preliminary NO GROWTH AFTER 24 HOURS Most Recent Lab Values WBC 20.6 K/uL (4.8-10.8) H 11/22/16 07:12 RBC 3.77 Mil/uL (3.80-5.20) L 11/22/16 07:12 Hgb 11.5 g/dL (11.0-16.0) 11/22/16 07:12 Hct 35.1 % (34.0-47.0) 11/22/16 07:12 MCV 93.1 fL (81.0-99.0) 11/22/16 07:12 MCH 30.6 pg (27.0-31.0) 11/22/16 07:12 MCHC 32.9 g/dL (33.0-37.0) L 11/22/16 07:12 RDW 14.1 % (11.5-14.5) 11/22/16 07:12 Plt Count 368 K/uL (130-400) 11/22/16 07:12 MPV 7.7 fL (7.2-11.7) 11/22/16 07:12 Neut % (Auto) 86.8 % (50.0-75.0) H 11/22/16 07:12 Lymph % (Auto) 10.5 % (20.0-40.0) L 11/22/16 07:12 [place] % (Auto) 2.6 % (0.0-10.0) 11/22/16 07:12 Eos % (Auto) 0.0 % (0.0-4.0) 11/22/16 07:12 Baso % (Auto) 0.1 % (0.0-2.0) 11/22/16 07:12 Neut # 17.8 K/uL (1.8-7.0) H 11/22/16 07:12 Lymph # 2.2 K/uL (1.0-4.3) 11/22/16 07:12 [place] # 0.5 K/uL (0.0-0.8) 11/22/16 07:12 Eos # 0.0 K/uL (0.0-0.7) 11/22/16 07:12 Baso # 0.0 K/uL (0.0-0.2) 11/22/16 07:12 Neutrophils % (Manual) 91 % (50-75) H 11/21/16 06:10 Band Neutrophils % 2 % (0-2) 11/21/16 06:10 Lymphocytes % (Manual) 6 % (20-40) L 11/21/16 06:10 Monocytes % (Manual) 1 % (0-10) 11/21/16 06:10 Platelet Estimate Normal (NORMAL) 11/21/16 06:10 RBC Morphology Normal 11/20/16 07:10 Hypochromasia (manual) Slight 11/21/16 06:10 Poikilocytosis (manual Slight 11/21/16 06:10 Anisocytosis (manual) Slight 11/21/16 06:10 PT 12.9 SECONDS (9.7-12.2) H 11/20/16 07:10 INR 1.2 11/20/16 07:10 APTT 31 SECONDS (21-34) 11/20/16 07:10 Sodium 146 mmol/L (132-148) 11/22/16 07:12 Potassium 4.1 mmol/L (3.6-5.2) 11/22/16 07:12 Chloride 116 mmol/L (98-107) H 11/22/16 07:12 Carbon Dioxide 18 mmol/L (22-30) L 11/22/16 07:12 Anion Gap 16 (10-20) 11/22/16 07:12 BUN 15 mg/dL (7-17) 11/22/16 07:12 Creatinine 1.0 MG/DL (0.7-1.2) 11/22/16 07:12 Est GFR ( Amer) > 60 11/22/16 07:12 Est GFR (Non-Af Amer) 55 11/22/16 07:12 Random Glucose 169 mg/dL (65-105) H 11/22/16 07:12 Calcium 7.6 mg/dl (8.6-10.4) L 11/22/16 07:12 Phosphorus 2.5 mg/dL (2.5-4.5) 11/22/16 07:12 Magnesium 2.4 mg/dL (1.6-2.3) H 11/22/16 07:12 Total Bilirubin 0.5 mg/dL (0.2-1.3) 11/22/16 07:12 AST 24 U/L (14-36) 11/22/16 07:12 ALT 44 U/L (9-52) 11/22/16 07:12 Alkaline Phosphatase 224 U/L (38-126) H 11/22/16 07:12 Total Protein 5.7 g/dL (6.3-8.3) L 11/22/16 07:12 Albumin 2.5 g/dL (3.5-5.0) L 11/22/16 07:12 Globulin 3.3 gm/dL (2.2-3.9) 11/22/16 07:12 Albumin/Globulin Ratio 0.8 (1.0-2.1) L 11/22/16 07:12 Triglycerides 97 mg/dL (0-149) D 11/21/16 06:10 Cholesterol 119 mg/dL (0-199) 11/21/16 06:10 LDL Cholesterol Direct 47 mg/dL (0-129) 11/21/16 06:10 HDL Cholesterol 29 mg/dL (30-70) L 11/21/16 06:10 Lipase 64 U/L (23-300) 11/19/16 11:29 Urine Color Yellow (YELLOW) 11/20/16 12:47 Urine Clarity Clear (Clear) 11/20/16 12:47 Urine pH 6.0 (5.0-8.0) 11/20/16 12:47 Ur Specific Bromide 1.012 (1.003-1.030) 11/20/16 12:47 Urine Protein 1+ mg/dL (NEGATIVE) H 11/20/16 12:47 Urine Glucose (UA) Normal mg/dL (Normal) 11/20/16 12:47 Urine Ketones 1+ mg/dL (NEGATIVE) H 11/20/16 12:47 Urine Blood 1+ (NEGATIVE) H 11/20/16 12:47 Urine Nitrate Negative (NEGATIVE) 11/20/16 12:47 Urine Bilirubin Negative (NEGATIVE) 11/20/16 12:47 Urine Urobilinogen Normal mg/dL (0.2-1.0) 11/20/16 12:47 Ur Leukocyte Esterase Trace Yoel/uL (Negative) 11/20/16 12:47 Urine WBC (Auto) 5 /hpf (0-5) 11/19/16 11:29 Urine RBC (Auto) 14 /hpf (0-3) H 11/19/16 11:29 Ur Squamous Epith Cells 12 /hpf (0-5) H 11/19/16 11:29 Amorphous Sediment Rare /ul (<OCC) H 11/19/16 11:29 Urine Bacteria Rare (<OCC) 11/19/16 11:29 Hyaline Casts 0-2 /lpf (0-2) 11/19/16 11:29 Granular Casts (Auto) 10 /lpf (0-1) 11/19/16 11:29 - Hospital Course Hospital Course: Upon Admission: HPI: 66 yo F with a PMHx significant for HLD who presents with complaints of abdominal pain that began yesterday morning. Patient states that shortly after waking up in the morning, while still lying in bed, she began to feel a "strong , bothersome" pain to the left-side. The pain originates in the LLQ and radiates to the left flank/back. She reports taking Tylenol and Motrin at home with some temporary relief. No noted aggravating factors. Denies any similar prior episodes in the past. Patient states that a few days before the onset of the pain, she began having a subjective fever and chills in which she also took Tylenol for. She is otherwise in NAD. Denies signs of chest pain, palpitations, n/v/d, constipation, changes in BM or urinary habits or changes in appetite. Of note, she has had recent sick contacts, as her 3 granddaughters all have had recent "colds". Denies any recent travels or eating any unusual foods. No other complaints at this time PMH: HLD PSH: Lap Mitra FH: None SH: -smoking, -EtOH, - Illicit drugs Meds: Atorvastatin 20mg PO QD Allergies: NKA Throughout hospital course: Patient was admitted for Diverticulitis. Patient had CT abdomen and pelvis which showed diverticulitis and cystitis. She was started on IV antibiotics and have both urine and blood cultures. Urine culture was negative. And her first set of blood cultures was positive, so repeat blood cultures were done x2 days later and they were negative. Incidental finding on CT Scan - Pulmonary Nodule: Abdomen and Pelvis CT- 3 mm right middle lobe pulmonary nodule. In the absence of risk factors for lung cancer, no specific imaging follow-up is required. If the patient is a smoker or has other risk factors, follow-up CT at 12 months is recommended to document stability. This is a brief summary of the patient's hospital course. Please review EMR for full record. Discharge Exam - Head Exam Head Exam: NORMAL INSPECTION, NORMOCEPHALIC - Eye Exam Eye Exam: EOMI, Normal appearance, PERRL - ENT Exam ENT Exam: Mucous Membranes Moist - Respiratory Exam Respiratory Exam: Clear to PA & Lateral, NORMAL BREATHING PATTERN - Cardiovascular Exam Cardiovascular Exam: REGULAR RHYTHM, RRR, +S1, +S2 - GI/Abdominal Exam GI & Abdominal Exam: Normal Bowel Sounds, Soft. absent: Distended, Tenderness - Extremities Exam Extremities exam: normal inspection, pedal pulses present - Neurological Exam Neurological exam: Alert, Oriented x3 - Skin Skin Exam: Dry, Intact, Normal Color, Warm Discharge Plan - Discharge Medications Prescriptions: Ciprofloxacin [Cipro] 500 mg PO BID #14 tab metroNIDAZOLE [Flagyl] 500 mg PO Q8 #21 tab - Follow Up Plan Condition: STABLE Disposition: HOME/ ROUTINE Patient education suggested?: Yes Instructions: Rectal Bleeding (GEN), Diverticulosis (GEN) Additional Instructions: Patient is to continue taking Ciprofloxacin 500mg by mouth every 12 hours for 7 days and Flagyl 500mg by mouth 3 times a day for 7 days. Patient is to continue taking her cholesterol medication. Patient can follow up with her PMD or Dr. Jenkins, please call [phone] to make an appointment to see him within 1 week. Please avoid food with seeds or nuts. Please return to the ED if your symptoms worsen or return. There was an Incidental finding on CT Scan - Pulmonary Nodule: Abdomen and Pelvis CT- 3 mm right middle lobe pulmonary nodule. In the absence of risk factors for lung cancer, no specific imaging follow-up is required. If the patient is a smoker or has other risk factors, follow-up CT at 12 months is recommended to document stability. PLEASE HAVE A CT SCAN of your chest in 12 months to monitor. El paciente debe seguir tomando Ciprofloxacin 500mg por va oral cada 12 horas alina 7 daniel y Flagyl 500mg por va oral 3 veces al da alina 7 daniel. El paciente debe seguir tomando garcia medicamento para el colesterol. La paciente puede darle seguimiento a garcia PMD o al Dr. Jenkins, por favor llame al [phone] para hacer bessy brian para verlo dentro de bessy semana. Evite los alimentos con semillas o cici secos. Por favor regrese a la DE si daksha sntomas empeoran o regresan. Hubo un hallazgo incidental en el escner CT - Ndulo Pulmonar: Abdomen y Pelvis CT - 3 mm de ndulo pulmonar del lbulo medio derecho. En ausencia de factores de riesgo para el cncer de pulmn, no se requiere un seguimiento espec fico de la imagen. Si el paciente es un fumador o tiene otros factores de riesgo, se recomienda bessy TC de seguimiento a los 12 meses para documentar la estabilidad. POR FAVOR TIENE BESSY JASON DE TC de garcia pecho en 12 meses para monitorear. Referrals: Jacobo Jenkins Jr., MD [Medical Doctor] -
[2016-11-29 13:48] VITALS: O2SAT 99
== END 2016-11-22 18:34 | disposition home or self-care (01) | DRG 872 ==
LOC: C.ER 09:36 → C.9E 15:21 → C.3T 16:33 → OBSVTOIN 11-20 15:23
PROVIDERS: ADMIT Internal Medicine; ATTEND Internal Medicine
DX: R78.81 Bacteremia (principal); K57.32 Diverticulitis of large intestine without perforation or abscess without bleeding; N39.0 Urinary tract infection, site not specified; K76.0 Fatty (change of) liver, not elsewhere classified; B96.89 Other specified bacterial agents as the cause of diseases classified elsewhere; R91.1 Solitary pulmonary nodule; E78.00 Pure hypercholesterolemia, unspecified; E78.5 Hyperlipidemia, unspecified; Z90.49 Acquired absence of other specified parts of digestive tract